=== PATIENT | female | born 1955 | race Caucasian/White ===

== ENCOUNTER 2017-02-26 07:41 | Emergency (ER) | payer SELFPAY ==
[~2017-02-26] VITALS: Ht 177.8 cm; Wt 84.4 kg
[2017-02-26 08:09] LABS: BASOPHIL (%) 0.3 % (0-1); EOSINOPHIL (%) 0 % (0-5); HEMATOCRIT 42.1 % (36.0-46.0); HEMOGLOBIN 14.6 G/DL (11.9-15.5); IMMATURE GRANULOCYTE (%) 0.3 % (0.0-0.7); LYMPHOCYTE (%) 7.4 % (15-42); LYMPHOCYTE COUNT 0.5 K/uL (1.0-2.8); MCH 31.3 PG (29.0-34.0); MCHC 34.7 G/DL (30.0-36.0); MCV 90.1 FL (83-99); MONOCYTE (%) 2.4 % (3-12); MONOCYTE COUNT 0.2 K/uL (0-0.8); NEUTROPHIL (%) 89.6 % (45-76); NEUTROPHIL COUNT 6.4 K/uL (1.8-6.4); PLATELET COUNT 220 K/uL (156-360); RBC DIS.WIDTH-CV 12.1 % (11.8-14.6); RBC DIS.WIDTH-SD 40.1 % (39-53); RED BLOOD COUNT 4.67 M/uL (3.80-5.20); WHITE BLOOD COUNT 7.2 K/uL (4.1-10.2)
[2017-02-26 08:15] LABS: ALBUMIN 4.6 g/dL (3.2-4.8); CHLORIDE 105 mEq/L (99-109); POTASSIUM 3.9 mEq/L (3.7-5.4); SODIUM 142 mEq/L (136-147)
[2017-02-26 08:17] LABS: GLUCOSE 159 mg/dL (70-99); TOTAL PROTEIN 7.4 g/dL (6.4-8.3)
[2017-02-26 08:19] LABS: TOTAL BILIRUBIN 0.5 mg/dL (0.0-1.0)
[2017-02-26 08:21] LABS: ALKALINE PHOSPHATASE 58 IU/L (3-129); CREATININE 0.8 mg/dL (0.6-1.3); GFR ESTIMATE (CALCULATED) > 59 mL/min/
[2017-02-26 08:22] LABS: UREA NITROGEN (BUN) 17 mg/dL (9-23)
[2017-02-26 08:23] LABS: AST (GOT) 23 IU/L (2-34)
[2017-02-26 08:24] LABS: ALT (GPT) 22 IU/L (3-49)
[2017-02-26 08:41] LABS: LIPASE 31 U/L (1.0-51.0)
[2017-02-26 10:06] LABS: APPEARANCE SL.HAZY ((CLEAR)); BILIRUBIN NEGATIVE; BLOOD SMALL; COLOR YELLOW ((YELLOW)); GLUCOSE (STRIP) NEGATIVE; KETONES 20; LEUKOCYTES NEGATIVE; NITRITE NEGATIVE; PROTEIN (STRIP) 30; SPECIFIC GRAVITY 1.018 (1.000-1.030); UROBILINOGEN 0.2 MG/DL (0.2-1.0)
[2017-02-26 10:15] LABS: BACTERIA NONE SEEN /HPF; EPITHELIAL CELLS RARE /HPF; MUCUS TRACE /LPF; WHITE BLOOD CELLS 0-5 /HPF (0-5)
[2017-02-26] MEDS ORDERED: CIPRO500 MG PO (11:38)
[2017-02-26] MEDS ORDERED: FLAGYL500 MG PO (11:38)
[2017-02-26] MEDS ORDERED: ZOFRAN4 MG PO (11:38)
[2017-02-26] MEDS ORDERED: TYLENOL WITH C1 EACH PO (11:38)
[2017-02-26] MEDS ORDERED: IMODIUM A-D2 M2 PO (11:38)
[2017-02-26 11:47] VITALS: BP 123/69
== END 2017-02-26 12:05 | disposition home or self-care (01) ==
LOC: EME → EDBD 07:41 → EME 12:05
PROVIDERS: Emergency Medicine
DX: K52.9 Noninfective gastroenteritis and colitis, unspecified (principal); R11.2 Nausea with vomiting, unspecified; F17.200 Nicotine dependence, unspecified, uncomplicated; Z88.0 Allergy status to penicillin
CPT/HCPCS: 74177; 80053; 81003; 83630; 83690; 85025; 87493; 99281; 99285; J2270; J2405; J2765; J7030